=== PATIENT | female | born 1970 | race African-American/Black ===

== ENCOUNTER 2022-12-13 09:42 | Day surgery (SDC) | payer MEDICAID ==
[2022-12-13] MEDS ORDERED: Sodium Chloride 0.9(Preservative Free) 10 ML IJ ONE (09:43)
[2022-12-13] MEDS ORDERED: Depo-Medrol 40 MG/ML IM ONE (09:43)
[2022-12-13] MEDS ORDERED: DIPRIVAN 200 MG/20 ML IV ONE ×2 (11:17→11:33)
--- NOTE | 2022-12-13 12:52 | XRAY ---
Indication: Right L4-S1 transforaminal TRENT. Intraoperative fluoroscopy provided for 13 seconds. 9 digital spot image submitted for interpretation demonstrates posterior needle tips projecting over the expected right L4 and L5 nerve roots. Small amount of contrast injected for needle tip placement. Correlate with intraoperative findings/report. Incidental bilateral L4-S1 fusion hardware.
[2022-12-13] MEDS ORDERED: Lactated Ringers 1,000 ML IV ONE (14:10)
--- NOTE | 2022-12-13 16:46 | XRAY ---
One minute and 13 seconds of fluoroscopy was used in surgery for a right L4-S1 transforaminal TRENT.
== END 2022-12-13 11:53 | disposition home or self-care (01) ==
LOC: SDC-PAIN 09:42
PROVIDERS: ATTEND Psychiatry & Neurology Pain Medicine
DX: M54.16 Radiculopathy, lumbar region (principal); E11.9 Type 2 diabetes mellitus without complications; Z79.899 Other long term (current) drug therapy
CPT/HCPCS: 64483; 64484; 72100; 77003; 82947; J1030; J2704; Q9966

== ENCOUNTER 2024-01-16 09:37 | Day surgery (SDC) | payer MEDICARE ==
[2024-01-16] MEDS ORDERED: Decadron 4 MG INJ IV ONE (09:38)
[2024-01-16] MEDS ORDERED: Sodium Chloride 0.9(Preservative Free) 10 ML IJ ONE (09:38)
[2024-01-16 10:05] LABS: HCG URINE TEST NEGATIVE (NEGATIVE)
[2024-01-16] MEDS ORDERED: Lactated Ringers 1,000 ML IV ONE (10:54)
[2024-01-16] MEDS ORDERED: DIPRIVAN 200 MG/20 ML IV ONE ×2 (11:17→11:34)
--- NOTE | 2024-01-16 12:59 | XRAY ---
Indication: Left L4-S1 transforaminal TRENT. Intraoperative fluoroscopy provided for 1 minute 17 seconds. 4 digital spot images submitted for interpretation demonstrates posterior needle tips projecting over the expected left L4 and L5 nerve roots. Small amount of contrast injected for needle tip placement. Correlate with intraoperative findings/report. Incidental bilateral L4-S1 fusion hardware.
--- NOTE | 2024-01-16 13:01 | XRAY ---
One minute and 17 seconds of fluoroscopy was used in surgery for a left L4-S1 transforaminal TRENT.
== END 2024-01-16 11:56 | disposition home or self-care (01) ==
LOC: SDC-PAIN 09:37
PROVIDERS: ATTEND Psychiatry & Neurology Pain Medicine
DX: M54.16 Radiculopathy, lumbar region (principal); E11.9 Type 2 diabetes mellitus without complications
CPT/HCPCS: 64483; 64484; 72100; 77003; 81025; 82947; J1100; J2704; Q9966